=== PATIENT | female | born 1970 | race Caucasian/White ===

== ENCOUNTER → 2016-12-11 | Outpatient (CLI) | payer BC ==
[~2016-12-11] MED LIST: LEVOTHYROXIN0.075 M1 PO; LEXAPRO 20 MG T20 MG PO; MEDROL 4MG. DOSE4 MG PO; NAPROSYN500 M1 PO; VICODIN 5/500 T1 TAB PO
== END ==
LOC: RAD 08:19
DX: R10.11 Right upper quadrant pain (principal)

== ENCOUNTER 2017-01-05 18:06 | Emergency (ER) | payer BC ==
[~2017-01-05] VITALS: Ht 160 cm; Wt 68.0 kg
--- NOTE | 2017-01-05 18:51 | Urgent Treatment Center Report ---
History of Present Issue Date/Time Seen by Provider 01/05/171828 Visit Reason Pt arrived:Walked Presenting Problem:PT C/O COUGH, CONGESTION, EAR PAIN X 1 WEEK Location if Accident: Onset of symptoms date/time:/ or onset unknown for:MEDICAL HX UNKNOWN Have you (or family members/close friends) recently traveled outside the [place]? N If Yes, where/when: Have you had exposure to infectious disease within the past month? TB? Other? Specify: Presents with c/o productive cough, congestion, wheezing and chest tightness that started approximately 1 week ago. Has been taking OTC cold medication, Mucinex and Flonase without relief. Denies recent exposure to known ill persons. Source patient Exam Limitations no limitations ALLERGIES Coded Allergies: morphine (09/28/16) Home Medications Reported Medications Escitalopram Oxalate (Lexapro 20MG) 20 MG PO DAILY Levothyroxine Sodium (Levothyroxine 0.075MG) 0.075 MG PO DAILY History Medical History General CAD? No Angina: No [place]: No Hypertension? No Hyperlipidemia? No CHF? No DVT? No PE? No COPD? No Asthma? No Anemia? No GERD? No Gastric ulcers? No GI Bleed? No Hernia? No Thyroid Problems? No Hypothyroidism? No CVA? No Seizures? No Diabetes? No Renal Insuffiency? No UTI? No Stones? No GB Disease: No Nephritic Syndrome? No Asplenia? No Hepatitis? No Sickle Cell Disease? No Arthritis? No Migraines? No Cataracts? No Glaucoma? No MRSA? No HIV? No TB? No Anxiety? No Depression? No Cancer? No Immunization HX DT/Tetanus 1-4 Years Ago Pneumonia Refuses Surgical Hx Previous Surgery?Y R KNEE TUBAL Social History Smoking Hx Smoker: Current Every Day Smoker Tobacco: Yes Type Cigarettes Packs/day < 1 Pack Alcohol Alcohol: No Review of Systems All Other Systems Reviewed and Negative Constitutional chills, fever, weakness ENT ear pain (right). denies: nose discharge, nose congestion, throat pain, throat swelling. Respiratory cough, shortness of breath, denies stridor, wheezing Cardiovascular denies edema Physical Exam Vital Signs Vital Signs Date Time Temp Pulse Resp B/P Pulse O2 O2 Flow FiO2 Ox Delivery Rate 01/05 185 97.7 59 16 123/82 98 101807 97.7 59 16 123/82 98 General Appearance normal appearance, WD/WN, no apparent distress Ear, Nose, Throat pharyngeal erythema (moderate), bilateral TMs intact, dull almazan; no erythema noted Neck non-tender, full range of motion, bilateral anterior cervical adenopathy Respiratory Status Yes: chest symmetrical, tender on palpation, productive cough. No: respiratory distress. Lung Sounds anterior: expiration. posterior: expiration. bilateral: rhonchi (clears some with coughing), wheezing. left: rhonchi (clears some with coughing), wheezing, expiration. right: rhonchi (clears some with coughing), wheezing, expiration. Cardiovascular normal exam, regular rate/rhythm, no peripheral edema, no murmur Neurologic alert, no motor/sensory deficits, oriented x 3 Mental status normal mood/affect Skin normal color, warm/dry Medical Decision Making LABS/Meds/Orders Pt receiving controlled substance in ED? No Results/Orders Current Medication Orders Sig/Yinka Start time Last Medication Dose Route Stop Time Status Admin Methylprednisolone 40 MG ONCE ONE 01/05 1900 DCD 01/05 Acetate IM 01/05 Methylprednisolone 0 .STK-MED ONE 01/05 1853 DC Acetate IM Departure Departure Time of Disposition 1840 Disposition DC Home or Self Care(routine) Clinical Impression Primary Impression: Acute bronchitis Qualifiers: Bronchitis organism: unspecified organism Qualified Code: J20.9 - Acute bronchitis, unspecified Condition STABLE Referrals [facility] (Family) Patient Instructions DI for Acute Bronchitis Additional Instructions Increase fluid intake and rest. Discussed proper medication administration including adverse effects. If symptoms persist or worsen follow-up with primary care provider. Patient verbalizes understanding. Discharge Counseling Counseled pt/family regarding diagnosis, medications/RX, home care, follow up needs Prescriptions Current Visit Scripts Azithromycin (Zithromycin (Z-LALO) 250MG Tab) 250 MG PO DAILY #6 TAB take as directed for 6 days Benzonatate (Tessalon Perle) 100 MG PO TIDP PRN cough #15 SGL take 1 capsule three times daily as needed for cough Methylprednisolone (Medrol Dose Lalo) 4 MG PO DAILY #1 LALO TAKE DIRECTED ON PACKAGING FOR 6 DAYS ALBUTEROL (Proventil Hfa Inhaler) 2 PUFF IH Q4HP PRN wheezing #1 CAN 2 puffs every 4 hours as needed for wheezing or shortness of breath at 2049
[2017-01-05 18:55] VITALS: BP 123/82
--- OUTSIDE RECORDS SUMMARY | 2017-01-15 23:29 | External Medical Summary Rpt | CCD ---
Author Author DEON Address Unknown Phone Purpose Continuity of Care Document - 12-12-2016 through 2016
--- OUTSIDE RECORDS SUMMARY | 2017-01-15 23:29 | External Medical Summary Rpt | CCD ---
Demographics Preferred Language Romanian Marital Status Unknown Sikhism Affiliation Unknown Race Unknown Ethnic Group Unknown Author Author , DEON CHAVARRIA Address Unknown Phone Immunization Unable to retrieve immunization data due to connection failure with Immunization Registry. Please try again later.
--- OUTSIDE RECORDS SUMMARY | 2017-01-15 23:29 | External Medical Summary Rpt | CCD ---
Demographics Preferred Language Macedonian Marital Status Unknown Synagogue Affiliation Unknown Race Unknown Ethnic Group Unknown Author Author , DEON CHAVARRIA Address Unknown Phone Immunization Unable to retrieve immunization data due to connection failure with Immunization Registry. Please try again later.
--- OUTSIDE RECORDS SUMMARY | 2017-01-15 23:29 | External Medical Summary Rpt | CCD ---
Author Author DEON Address Unknown Phone [email or web address] Purpose Continuity of Care Document - 12-12-2016 through 2016
--- OUTSIDE RECORDS SUMMARY | 2017-01-15 23:30 | External Medical Summary Rpt ---
Author Author EDISONHERNANDEZ Ratliff, [facility] [employer] Organization [facility] [employer] Address Unknown Phone Unavailable Results Amylase [Enzymatic activity/volume] in Serum or Plasma Observa Value Referen Units Interpr Notes Date tion ce etation Range Amylase 25 - 115 U/L Normal No Sep 7 [Enzymati informati 2017 9:14 c on in AM activity/ source volume] data in Serum or Plasma Comprehensive metabolic 2000 panel in Serum or Plasma Observa Value Referen Units Interpr Notes Date tion ce etation Range Albumin/G 1.1 - 1.8 No Normal No Sep 7 lobulin informati informati 2017 9:14 [Mass on in on in AM ratio] in source source Serum or data data Plasma Albumin 3.4 - 5.0 gm/dL Normal No Sep 7 [Mass/vol informati 2017 9:14 ume] in on in AM Serum or source Plasma data Alkaline 46 - 116 U/L Normal No Sep 7 phosphata informati 2017 9:14 se on in AM [Enzymati source c data activity/ volume] in Serum or Plasma Bilirubin 0.2 - 1.0 mg/dL Normal No Sep 7 .total informati 2017 9:14 [Mass/vol on in AM ume] in source Serum or data Plasma Urea 7 - 18 mg/dL Normal No Sep 7 nitrogen informati 2017 9:14 [Mass/vol on in AM ume] in source Serum or data Plasma Calcium 8.5 - mg/dL Normal No Sep 7 [Mass/vol 10.1 informati 2017 9:14 ume] in on in AM Serum or source Plasma data Chloride 98 - 107 mmoL/L Normal No Sep 7 [Moles/vo informati 2017 9:14 lume] in on in AM Serum or source Plasma data Carbon 21.0 - mmoL/L Normal No Sep 7 dioxide, 32.0 informati 2017 9:14 total on in AM [Moles/vo source lume] in data Serum or Plasma Creatinin 0.55 - mg/dL Low No Sep 7 e 1.02 informati 2017 9:14 [Mass/vol on in AM ume] in source Serum or data Plasma Estimated 59- ML/MIN No REFERENCE Sep 7 informati RANGE: 2017 9:14 glomerula on in >60 AM r source ML/MIN/1. filtratio data 73 SQUARE n rate METERSIf (GF this patient is -A merican, then multiply theresult by 1.210. Globulin 1.3 - 3.2 gm/dL High No Sep 7 [Mass/vol informati 2017 9:14 ume] in on in AM Serum source data Glucose 74 - 106 mg/dL Normal No Sep 7 [Mass/vol informati 2017 9:14 ume] in on in AM Serum or source Plasma data Potassium 3.5 - 5.1 mmoL/L Normal No Sep 7 informati 2016 9:14 [Moles/vo on in AM lume] in source Serum or data Plasma Sodium 136 - 145 mmoL/L Normal No Sep 7 [Moles/vo informati 2016 9:14 lume] in on in AM Serum or source Plasma data Aspartate 15 - 37 U/L Low No Sep 7 informati 2016 9:14 aminotran on in AM sferase source [Enzymati data c activity/ volume] in Serum or Plasma Alanine 12 - 78 U/L Normal No Sep 7 aminotran informati 2016 9:14 sferase on in AM [Enzymati source c data activity/ volume] in Serum or Plasma Protein 6.4 - 8.2 gm/dL Normal No Sep 7 [Mass/vol informati 2017 9:14 ume] in on in AM Serum or source Plasma data Lipase [Enzymatic activity/volume] in Serum or Plasma Observa Value Referen Units Interpr Notes Date tion ce etation Range Lipase 73 - 393 U/L Normal No Sep 7 [Enzymati informati 2017 9:14 c on in AM activity/ source volume] data in Serum or Plasma Lipid 1996 panel in Serum or Plasma Observa Value Referen Units Interpr Notes Date tion ce etation Range Cholester < 200 mg/dL High No Sep 7 ol informati 2017 9:14 [Moles/vo on in AM lume] in source Unspecifi data ed specimen Cholester 40 - 60 MG/DL Normal No Sep 7 ol in HDL informati 2017 9:14 on in AM [Mass/vol source ume] in data Serum or Plasma Cholester 0 - 130 mg/dL High No Sep 7 ol in LDL informati 2017 9:14 on in AM [Mass/vol source ume] in data Serum or Plasma by calculati on Triglycer 30 - 200 mg/dL Normal No Sep 7 sammie informati 2016 9:14 [Moles/vo on in AM lume] in source Serum or data Plasma Cholester 0 - 40 No Normal No Sep 7 ol in informati informati 2017 9:14 VLDL on in on in AM [Mass/vol source source ume] in data data Serum or Plasma Thyrotropin [Units/volume] in Serum or Plasma Observa Value Referen Units Interpr Notes Date tion ce etation Range Thyrotrop 0.358 - uIU/ml High No Sep 7 in 3.740 informati 2016 9:14 [Units/vo on in AM lume] in source Serum or data Plasma CBC W Auto Differential panel in Blood Observa Value Referen Units Interpr Notes Date tion ce etation Range Basophils 0 - 0.2 K/MM3 Normal No Sep 7 informati 2016 9:14 [#/volume on in AM ] in source Blood by data Automated count Basophils 0.1 - 2.0 % Normal No Sep 7 /100 informati 2017 9:14 leukocyte on in AM s in source Blood by data Automated count Eosinophi 0.0 - 0.4 K/mm3 Normal No Sep 7 ls informati 2016 9:14 [#/volume on in AM ] in source Blood by data Automated count Eosinophi 0.1 - % Normal No Sep 7 ls/100 12.0 informati 2016 9:14 leukocyte on in AM s in source Blood by data Automated count Granulocy 1.8 - 7.8 K/mm3 Normal No Sep 7 francisco javier informati 2016 9:14 [#/volume on in AM ] in source Blood by data Automated count Granulocy 37.0 - % Normal No Sep 7 francisco javier/100 80.0 informati 2016 9:14 leukocyte on in AM s in source Blood by data Automated count Hematocri 37.0 - % Normal No Sep 7 t [Volume 47.0 informati 2016 9:14 on in AM Fraction] source of Blood data Hemoglobi 12.2 - g/dL Normal No Sep 7 n 16.2 informati 2016 9:14 [Mass/vol on in AM ume] in source Blood data Lymphocyt 0.7 - 4.5 K/mm3 Normal No Sep 7 es informati 2017 9:14 [#/volume on in AM ] in source Unspecifi data ed specimen by Automated count Lymphocyt 10 - 50.0 % Normal No Sep 7 es informati 2017 9:14 [#/volume on in AM ] in source Unspecifi data ed specimen by Automated count Erythrocy 27 - 31.2 pg Normal No Sep 7 te mean informati 2017 9:14 corpuscul on in AM ar source hemoglobi data n [Entitic mass] Erythrocy 31.8 - g/dl Normal No Sep 7 te mean 35.4 informati 2017 9:14 corpuscul on in AM ar source hemoglobi data n concentra tion [Mass/vol ume] by Automated count Erythrocy 82.2 - fl Normal No Sep 7 te mean 97.8 informati 2017 9:14 corpuscul on in AM ar volume source [Entitic data volume] by Automated count Monocytes 0.1 - 1.0 K/mm3 Normal No Sep 7 informati 2017 9:14 [#/volume on in AM ] in source Blood by data Automated count Monocytes 1.7 - 9.3 % Normal No Sep 7 /100 informati 2017 9:14 leukocyte on in AM s in source Blood by data Automated count Platelet 7.4 - fl Low No Sep 7 mean 10.4 informati 2017 9:14 volume on in AM [Entitic source volume] data in Blood by Automated count Platelets 142 - 424 K/mm3 Normal No Sep 7 informati 2017 9:14 [#/volume on in AM ] in source Blood data Erythrocy 4.2 - 5.4 M/mm3 Normal No Sep 7 francisco javier informati 2017 9:14 [#/volume on in AM ] in source Amniotic data fluid Erythrocy 11.5 - % Normal No Sep 7 te 17.5 informati 2017 9:14 distribut on in AM ion width source [Entitic data volume] by Automated count Leukocyte 4.8 - K/MM3 Normal No Sep 7 s 10.8 informati 2017 9:14 [#/volume on in AM ] in source Blood data
== END 2017-01-05 18:59 | disposition home or self-care (01) ==
LOC: UTC 18:06
DX: J20.9 Acute bronchitis, unspecified (principal); F17.210 Nicotine dependence, cigarettes, uncomplicated

== ENCOUNTER → 2017-01-15 | Outpatient (CLI) | payer BC ==
[~2017-01-15] MED LIST changes: +PROVENTIL0.09 MG/A1 IH; +TESSALON PERLE100 M1 PO; +ZITHROMAX Z PA250 MG PO
[2017-01-15 14:42] LABS: URINE BILIRUBIN - DIPSTICK NEGATIVE (NEG); URINE BLOOD NEGATIVE (NEG)
[2017-01-15 14:56] LABS: LYMPH % 29.4 % (10-50.0)
[2017-01-15 15:07] LABS: HEMOGLOBIN 15.6 g/dL (12.2-16.2)
[2017-01-15 16:14] LABS: BUN 10 mg/dL (7-18)
[2017-01-15 16:20] LABS: GFR (ESTIMATED) 90 ML/MIN (59-)
== END ==
LOC: LAB 14:22
PROVIDERS: Surgery
DX: R14.0 Abdominal distension (gaseous) (principal); K58.2 Mixed irritable bowel syndrome; K21.9 Gastro-esophageal reflux disease without esophagitis; R12 Heartburn

== ENCOUNTER 2017-01-23 08:50 | Day surgery (SDC) | payer BC ==
--- NOTE | 2017-01-23 10:15 | Operative Note ---
Surgeon/Diagnoses Surgeon/Energy Efficiency Specialist(s) Date of procedure: 01/23/17 Surgeon: MD Brenda Villela Diagnoses Pre-op diagnosis: Abdominal bloating Irritable bowel syndrome with alternating constipation and diarrhea Gastroesophageal reflux Heartburn Post-op diagnosis Same as preoperative diagnoses, with the addition of the following: Gastritis Antral ulcerations Pyloric channel ulcerations Duodenal bulb ulcerations Procedure Procedure Procedure: Esophagogastroduodenoscopy with biopsy Indications: ABUNDIO ALBA is a 46 year-old Female with a history of abdominal bloating, irritable bowel syndrome with alternating constipation diarrhea, reflux, and heartburn. She is recent Carlos Alberto been evaluated for possible biliary disease. Her symptoms are not pathognomonic and further evaluation with esophagogastroduodenoscopy was deemed appropriate prior to undergoing discussion with regard to gallbladder disease. Findings: Acute ulcer disease with small shallow ulcerations in the antrum, pyloric channel, and duodenal bulb No active bleeding noted Patchy gastritis Procedure Description: After informed consent was obtained, the patient was taken to the endoscopy suite. IV sedation ensued after she was transferred to the LEFT lateral decubitus position. The gastroscope was advanced. The stomach was entered. Patchy gastritis was noted. Evaluation distally revealed small shallow ulcerations in the antrum. The pyloric channel and duodenal bulb were also notable for small shallow ulcerations. No active bleeding was noted. A biopsy of the antrum was obtained. Inflammation at the gastroesophageal junction was also noted and a biopsy was obtained. The gastroscope was carefully removed and the patient was transferred to recovery. EBL (ml): 5 (less than 5 mL) Anesthesia: IV sedation with 8 mg Versed and 150 g of fentanyl Complications: No immediate Specimens: Antral biopsy Vessel esophageal junction biopsy Disposition Disposition: Stable to recovery. H/H will be checked in 2 hours and once again tomorrow morning secondary to mild "ooze" at the time of GE junction biopsy. Carafate and Protonix will be started. She will follow-up in one week. at 1019
[2017-01-23 12:35] LABS: HEMOGLOBIN 13.1 g/dL (12.2-16.2)
[2017-01-23 13:10] VITALS: BP 104/56
== END 2017-01-23 12:30 | disposition home or self-care (01) ==
LOC: SDC 08:50
PROVIDERS: Surgery
PROC: 0DB78ZX Excision of Stomach, Pylorus, Via Natural or Artificial Opening Endoscopic, Diagnostic (ICD-10-PCS; 2017-01-23)
PROC: 0DB48ZX Excision of Esophagogastric Junction, Via Natural or Artificial Opening Endoscopic, Diagnostic (ICD-10-PCS; principal; 2017-01-23 09:30)
DX: K21.9 Gastro-esophageal reflux disease without esophagitis (principal); K29.70 Gastritis, unspecified, without bleeding; K26.9 Duodenal ulcer, unspecified as acute or chronic, without hemorrhage or perforation; K25.9 Gastric ulcer, unspecified as acute or chronic, without hemorrhage or perforation

== ENCOUNTER → 2017-01-24 | Outpatient (CLI) | payer BC ==
[2017-01-24 08:47] LABS: HEMOGLOBIN 12.8 g/dL (12.2-16.2)
== END ==
LOC: LAB 08:15
PROVIDERS: Surgery
DX: K21.9 Gastro-esophageal reflux disease without esophagitis (principal); K29.70 Gastritis, unspecified, without bleeding; K26.9 Duodenal ulcer, unspecified as acute or chronic, without hemorrhage or perforation; K25.9 Gastric ulcer, unspecified as acute or chronic, without hemorrhage or perforation

== ENCOUNTER 2017-03-27 07:38 | Day surgery (SDC) | payer BC ==
--- NOTE | 2017-03-27 08:38 | Operative Note ---
Surgeon/Diagnoses Surgeon/Stereo Equipment Installer(s) Date of procedure: 03/27/17 Surgeon: MD Brenda Villela Diagnoses Pre-op diagnosis: Peptic ulcer disease with history of shallow ulcerations in antrum, pyloric channel, and proximal duodenum Patchy gastritis Post-op diagnosis Mild gastritis Procedure Procedure Procedure: Esophagogastroduodenoscopy with biopsy Indications: ABUNDIO ALBA is a 46 year-old Female with a history of shallow antral, pyloric channel, and proximal duodenal ulcerations. She is on Carafate and proton pump inhibition. Findings: Very mild gastritis with no ulcerations noted Procedure Description: After informed consent was obtained, the patient was taken to the endoscopy suite. IV sedation ensued after she was transferred to the LEFT lateral decubitus position. The gastroscope was advanced. The stomach was entered. Minimal inflammation of the antrum was noted. Ulcerations were healed. The pylorus was intubated. The duodenal mucosa appeared relatively normal. As the gastroscope was removed, an antral biopsy was obtained. The patient was transferred to recovery in stable condition. EBL (ml): 1 Anesthesia: IV sedation with 7 mg of Versed and 100 g of fentanyl Complications: No immediate Specimens: Antral biopsy Disposition Disposition: Stable to recovery from where she will be discharged home. She will follow-up in one week. at 0877
[2017-03-27 14:53] VITALS: BP 133/75
== END 2017-03-27 09:20 | disposition home or self-care (01) ==
LOC: SDC 07:38
PROVIDERS: Surgery
PROC: 0DB78ZX Excision of Stomach, Pylorus, Via Natural or Artificial Opening Endoscopic, Diagnostic (ICD-10-PCS; principal; 2017-03-27 08:00)
DX: K27.9 Peptic ulcer, site unspecified, unspecified as acute or chronic, without hemorrhage or perforation (principal); K29.70 Gastritis, unspecified, without bleeding